=== PATIENT | male | born 1960 | race Caucasian/White ===

== ENCOUNTER 2016-05-20 23:35 | Emergency (ER) | payer MEDICAID, OTHER ==
[~2016-05-20 23:35] MED LIST: Acetaminophen/HYDROcodone 325-5 MG Tab PO ONE
[2016-05-20] MEDS ORDERED: HYDROmorphone 1 MG/ML Syringe IM ONE (23:44)
[2016-05-20] MEDS ORDERED: Promethazine 25 MG/ML SDV IM ONE (23:47)
[2016-05-21 00:08] VITALS: BP 138/91
[2016-05-21] MEDS ORDERED: Take Home: Acetaminophen/HYDROcodone 325-5 MG, 2 Tab Pack PO ONE (00:22)
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
== END 2016-05-21 00:46 | disposition home or self-care (01) ==
LOC: CC.ED 23:35
DX: S20.219A Contusion of unspecified front wall of thorax, initial encounter (principal); R51 Headache; Z88.0 Allergy status to penicillin; Z88.5 Allergy status to narcotic agent; Z88.8 Allergy status to other drugs, medicaments and biological substances; Z79.82 Long term (current) use of aspirin; Z79.899 Other long term (current) drug therapy; I10 Essential (primary) hypertension; K21.9 Gastro-esophageal reflux disease without esophagitis; F41.9 Anxiety disorder, unspecified; X58.XXXA Exposure to other specified factors, initial encounter
CPT/HCPCS: 70450; 96372; 99284; A9270; J1170; J2550

== ENCOUNTER 2016-06-09 10:22 | Emergency (ER) | payer MEDICAID, OTHER ==
[2016-06-09 10:28] VITALS: BP 129/78
[2016-06-09] MEDS ORDERED: ALPRAZolam 0.25 MG Tab PO ONE (10:32)
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
[2016-06-09 11:51] LABS: CHLORIDE,CL 99 mEq/L (98-106); SODIUM,NA 138 mEq/L (136-145)
== END 2016-06-09 12:10 | disposition home or self-care (01) ==
LOC: CC.ED 10:22
DX: F41.9 Anxiety disorder, unspecified (principal); F10.10 Alcohol abuse, uncomplicated; I10 Essential (primary) hypertension; K21.9 Gastro-esophageal reflux disease without esophagitis; Z79.82 Long term (current) use of aspirin; Z79.899 Other long term (current) drug therapy; Z88.0 Allergy status to penicillin; Z88.5 Allergy status to narcotic agent; Z88.8 Allergy status to other drugs, medicaments and biological substances
CPT/HCPCS: 36415; 80048; 80305; 85025; 99283; A9270

== ENCOUNTER 2016-06-19 12:00 | Emergency (ER) | payer MEDICAID ==
[2016-06-19 12:31] LABS: CHLORIDE,CL 96 mEq/L (98-106); SODIUM,NA 131 mEq/L (136-145)
[2016-06-19 12:52] VITALS: BP 151/94
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
== END 2016-06-19 13:25 | disposition home or self-care (01) ==
LOC: CC.ED 12:00
DX: R51 Headache (principal); I10 Essential (primary) hypertension; K21.9 Gastro-esophageal reflux disease without esophagitis; F41.9 Anxiety disorder, unspecified; F20.9 Schizophrenia, unspecified; Z88.0 Allergy status to penicillin; Z87.828 Personal history of other (healed) physical injury and trauma; Z88.8 Allergy status to other drugs, medicaments and biological substances; Z79.82 Long term (current) use of aspirin; Z79.899 Other long term (current) drug therapy
CPT/HCPCS: 36415; 80048; 80305; 81001; 83735; 85025; 99284

== ENCOUNTER 2016-10-27 12:35 | Emergency (ER) | payer MEDICAID, OTHER ==
[2016-10-27 12:44] VITALS: BP 142/91
--- NOTE | 2016-10-27 13:02 | EDM.PDOC ---
ED HPI GENERAL MEDICAL PROBLEM - General Chief Complaint: Respiratory Problem Stated Complaint: ? PNEUMONIA Time Seen by Provider: 10/27/16 12:46 Source of Information: Reports: Patient History Limitations: Reports: No Limitations - History of Present Illness INITIAL COMMENTS - FREE TEXT/NARRATIVE: States that his lungs are filling up and he needs an antibiotic. Starting to cough. Doesn't know if he has had a temp. "My lungs fill up fast and I go down " states that he coughed up green today. Admits to drinking about 3 drinks already this morning. Onset: Today Location: Reports: Chest Associated Symptoms: Reports: Shortness of Breath Chest Pain Score (Numeric/FACES): 4 - Related Data Allergies Allergy/AdvReac Type Severity Reaction Status Date / Time buspirone HCl [From BuSpar] Allergy Hallucinati Verified 10/04/16 09:21 ons codeine Allergy Itching Verified 10/04/16 09:21 Penicillins Allergy Anaphylactic Verified 10/04/16 09:21 Shock phenytoin sodium Allergy Difficulty Verified 10/04/16 09:21 [From Dilantin] Standing phenytoin sodium extended Allergy Difficulty Verified 10/04/16 09:21 [From Dilantin] Standing Home Meds: Home Meds Multivitamin with Minerals [Multiple Vitamin] 1 tab PO BID 05/07/13 [History] Folic Acid 1 mg PO DAILY 05/29/13 [History] Thiamine [Vitamin B-1] 100 mg PO DAILY 05/29/13 [History] traZODone 150 mg PO BEDTIME 04/14/14 [History] Cyanocobalamin (Vitamin B12) [Cyanocobalamin] 1,000 mcg IM Q30D 07/28/14 [ History] Desoximetasone [Topicort 0.25% Oint] 1 gm TOP DAILY PRN 07/28/14 [History] FLUoxetine [PROzac] 40 mg PO DAILY 06/19/16 [History] atoMOXetine HCl [Strattera] 100 mg PO DAILY 06/19/16 [History] buPROPion [Wellbutrin SR] 100 mg PO DAILY 06/19/16 [History] Past Medical History Cardiovascular History: Reports: Hypertension Gastrointestinal History: Reports: Chronic Constipation, GERD Musculoskeletal History: Reports: Back Pain, Chronic, Fracture Psychiatric History: Reports: Addiction, Anxiety, Depression, Schizophrenia Hematologic History: Reports: B12 Deficiency - Infectious Disease History Infectious Disease History: Reports: Mumps - Past Surgical History HEENT Surgical History: Reports: Other (See Below) Other HEENT Surgeries/Procedures: cranial surgery Musculoskeletal Surgical History: Reports: Other (See Below) Social & Family History - Family History Family Medical History: Unobtainable - Tobacco Use Smoking Status *Q: Current Every Day Smoker Years of Tobacco use: 40 Packs/Tins Daily: 0.5 Used Tobacco, but Quit: No Second Hand Smoke Exposure: No - Caffeine Use Caffeine Use: Reports: Coffee - Alcohol Use Days Per Week of Alcohol Use: 7 Number of Drinks Per Day: 8 Total Drinks Per Week: 56 Date of Last Drink: 10/27/16 Time of Last Drink: 11:30 - Recreational Drug Use Recreational Drug Use: Yes Drug Use in Last 12 Months: No Recreational Drug Type: Reports: Oxycodone Recreational Drug Use Frequency: Not Used In Over 6 Months Recreational Drug Last Use: claims to be abstaining currently >6 months - Living Situation & Occupation Living situation: Reports: , Alone Occupation: Disabled ED ROS GENERAL - Review of Systems Review Of Systems: See Below Constitutional: Denies: Fever, Chills HEENT: Denies: Sinus Problem Respiratory: Reports: Shortness of Breath, Cough Cardiovascular: Denies: Chest Pain GI/Abdominal: Reports: No Symptoms : Reports: No Symptoms Musculoskeletal: Reports: No Symptoms Skin: Reports: No Symptoms ED EXAM, GENERAL - Physical Exam Exam: See Below Exam Limited By: No Limitations General Appearance: Alert, WD/WN, No Apparent Distress Ears: Normal External Exam, Normal Canal, Normal TMs Nose: Normal Inspection Throat/Mouth: Normal Inspection, Normal Oropharynx Head: Atraumatic, Normocephalic Neck: Normal Inspection, Supple, Non-Tender Respiratory/Chest: No Respiratory Distress, Lungs Clear, Rhonchi. No: Rales, Wheezing Cardiovascular: Regular Rate, Rhythm, No Edema GI/Abdominal: Normal Bowel Sounds, Soft, Non-Tender Extremities: Normal Inspection, Normal Range of Motion, Non-Tender, No Pedal Edema Neurological: Alert, Oriented Skin Exam: Warm, Dry, Intact Course - Vital Signs Last Recorded V/S: Last Vital Signs Temp 98.2 F 10/27/16 12:40 Pulse 105 H 10/27/16 12:40 Resp 20 10/27/16 12:40 BP 142/91 H 10/27/16 12:40 Pulse Ox 96 10/27/16 12:40 Departure - Departure Time of Disposition: 13:04 Disposition: Home, Self-Care 01 Condition: Good Clinical Impression: Acute bronchiolitis Qualifiers: Bronchiolitis organism: unspecified organism Qualified Code(s): J21.9 - Acute bronchiolitis, unspecified - Discharge Information Additional Instructions: Doxycycline 100 mg twice a day for 10 days Push fluids as much as possible Recheck with primary care provider in the clinic if not improving. - Problem List & Annotations (1) Acute bronchiolitis SNOMED Code(s): 0760132 Code(s): J21.9 - ACUTE BRONCHIOLITIS, UNSPECIFIED Status: Acute Priority : High Qualifiers: Bronchiolitis organism: unspecified organism Qualified Code(s): J21.9 - Acute bronchiolitis, unspecified - Problem List Review Problem List Initiated/Reviewed/Updated: Yes
== END 2016-10-27 13:20 | disposition home or self-care (01) ==
LOC: CC.ED 12:35
DX: J21.9 Acute bronchiolitis, unspecified (principal); I10 Essential (primary) hypertension; F41.9 Anxiety disorder, unspecified; F32.9 Major depressive disorder, single episode, unspecified; F17.210 Nicotine dependence, cigarettes, uncomplicated; Z88.0 Allergy status to penicillin; Z88.8 Allergy status to other drugs, medicaments and biological substances
CPT/HCPCS: 99283